=== PATIENT | male | born 1990 | race Caucasian/White ===

== ENCOUNTER 2018-08-28 13:41 | Emergency (ER) | payer MEDICAID ==
[~2018-08-28] VITALS: Ht 193 cm; Wt 99.8 kg
[2018-08-28 13:50] VITALS: BP_SYST 138
--- NOTE | 2018-08-28 13:50 | NUR ---
Pt BIB BLS, placed in ER bed 06. Report given to LOIS Hemphill.
--- NOTE | 2018-08-28 14:00 | NUR ---
Pt presents to ER for laceration to 4th digit on R hand. Pt reports that he was lifting up folding tables when his finger got caught between two tables. Pt has an approx 2cm laceration to lateral aspect of 4th digit on R hand, scant amount of blood present. Pt describes pain as throbbing and rates 3/10 on pain scale. Pt also states that he lost consciousness at the sight of blood after incident, which was witnessed by coworkers. Pt denies head trauma, no other lacerations or abrasions noted, pt AOX4, ambulatory, no signs of distress upon arrival.
--- NOTE | 2018-08-28 14:45 | NUR ---
ER at bedside examining patient.
--- NOTE | 2018-08-28 15:20 | NUR ---
Dr. Marshall at bedside speaking with pt discussing xray results.
--- NOTE | 2018-08-28 15:30 | NUR ---
Steri-strips applied to pt's 4th digit on R hand as ordered by YANI Marshall.
[2018-08-28 15:35] VITALS: BP_SYST 138
--- NOTE | 2018-08-28 15:35 | NUR ---
Patient given written and verbal discharge instructions and verbalizes understanding. ER MD discussed with patient the results and treatment provided. Patient in stable condition. ID arm band removed. No Rx given. Patient educated on pain management and to follow up with PMD. Pain Scale 2/10. Opportunity for questions provided and answered. Medication side effect fact sheet provided.
== END 2018-08-28 15:35 | disposition home or self-care (01) ==
LOC: SED 13:41
DX: S61.214A Laceration without foreign body of right ring finger without damage to nail, initial encounter (principal); R55 Syncope and collapse; W26.8XXA Contact with other sharp object(s), not elsewhere classified, initial encounter; Y93.89 Activity, other specified; Y92.89 Other specified places as the place of occurrence of the external cause; Y99.8 Other external cause status
CPT/HCPCS: 73140-TC; 99284